=== PATIENT | female | born 1990 | race Caucasian/White ===

== ENCOUNTER 2017-05-20 23:45 | Emergency (ER) | payer SELFPAY ==
[~2017-05-20] VITALS: Ht 165.1 cm; Wt 65.5 kg
[2017-05-20 23:47] VITALS: Ht 165.1 cm; Wt 65.5 kg
[2017-05-21] MEDS ORDERED: morphine 4 MG/ML VIAL IV STA (00:09)
[2017-05-21] MEDS ORDERED: SOD CHLORIDE 0.9% 1,000 ML IV STA (00:09)
[2017-05-21] MEDS ORDERED: ONDANSETRON 4 MG INJ IV STA (00:09)
[2017-05-21 00:51] LABS: BASOPHILS % 0.1 % (0.0-2.0); EOSINOPHILS # 0.1 10^3/ul (0.0-0.5); EOSINOPHILS % 0.4 % (0.0-7.0); HEMATOCRIT 35.3 % (37.0-47.0); HEMOGLOBIN 11.4 g/dl (12.0-16.0); LYMPHOCYTES # 1.7 10^3/ul (0.8-2.9); LYMPHOCYTES % 12.8 % (15.0-51.0); MEAN CORPUSCULAR HEMOGLOBIN 25.9 pg (29.0-33.0); MEAN CORPUSCULAR HGB CONC 32.3 g/dl (32.0-37.0); MEAN CORPUSCULAR VOLUME 80.2 fl (82.0-101.0); MEAN PLATELET VOLUME 9.6 fl (7.4-10.4); MONOCYTE # 0.8 10^3/ul (0.3-0.9); MONOCYTES % 5.7 % (0.0-11.0); NEUTROPHIL # 10.8 10^3/ul (1.6-7.5); NEUTROPHILS % 80.4 % (39.0-77.0); PLATELET COUNT 408 10^3/UL (140-415); RED CELL DISTRIBUTION WIDTH 14.6 % (11.5-14.5); WHITE BLOOD COUNT 13.4 10^3/ul (4.8-10.8)
[2017-05-21 00:57] LABS: ADD UMIC YES; UR ASCORBIC ACID NEGATIVE (NEGATIVE); UR BILIRUBIN (Dip) NEGATIVE (NEGATIVE); UR BLOOD (Dip) 2+ mg/dL (NEGATIVE); UR CLARITY SLIGHTLY CLOUDY (CLEAR); UR COLOR YELLOW (YELLOW); UR GLUCOSE (Dip) NEGATIVE (NEGATIVE); UR KETONES (Dip) NEGATIVE (NEGATIVE); UR LEUKOCYTE ESTERASE (Dip) TRACE Leu/ul (NEGATIVE); UR MUCUS FEW /HPF (NONE SEEN); UR NITRITE (Dip) NEGATIVE (NEGATIVE); UR RBC 1 /HPF (0-5); UR SPECIFIC GRAVITY (Dip) 1.021 (1.003-1.030); UR SQUAMOUS EPITHELIAL CELL FEW /HPF (FEW); UR TOTAL PROTEIN (Dip) NEGATIVE (NEGATIVE); UR UROBILINOGEN (Dip) NEGATIVE (NEGATIVE)
[2017-05-21 01:23] LABS: ALBUMIN 4.7 g/dl (3.3-4.9); ALBUMIN/GLOBULIN RATIO 1.2; BILIRUBIN,INDIRECT 0.1 mg/dl (0-1.1); BILIRUBIN,TOTAL 0.1 mg/dl (0.2-1.3); CREATININE 0.83 mg/dl (0.44-1.00); POTASSIUM 3.6 mmol/L (3.5-5.1); TOTAL PROTEIN 8.6 g/dl (6.1-8.1)
--- NOTE | 2017-05-21 02:13 | RADRPT ---
PROCEDURE: Abdominal ultrasound, limited. CLINICAL INDICATION: Abdominal pain. TECHNIQUE: Multiple real-time images were acquired of the patient's right upper abdomen utilizing a high resolution transducer. COMPARISON: None FINDINGS: The liver demonstrates normal echogenicity and size measuring 16.0 cm. There is no focal mass or in trahepatic biliary ductal dilatation. The portal vein is patent. The gallbladder is not distended. Multiple echogenic gallstones are identified. There is a negative sonographic Molina's sign. The re is no pericholecystic fluid or gallbladder wall thickening. The common bile duct measures 4.9 mm in maximal dimension. The pancreas is obscured by overlying bowel gas. No free fluid is identifie d. The right kidney is normal size and echogenicity measuring 8.9 cm. There is no focal renal mass or echogenic calculus identified. There is no obstructive uropathy. IMPRESSION: Cholelithiasis without ultrasound evidence of cholecystitis. Pancreas obscured by overlying bowel gas. .Patrick Bermudez MD, Date Time Electronically viewed and signed by .Patrick Bermudez MD, MD on 05/21/2017 02:13 .T/
[2017-05-21] MEDS ORDERED: HYDR-906 PO (02:36)
[2017-05-21] MEDS ORDERED: IBUP-1542 PO (02:36)
[2017-05-21] MEDS ORDERED: ONDA4TAB14 PO (02:41)
--- NOTE | 2017-05-21 02:41 | ERD ---
ER Documentation Chief Complaint Date/Time DATE: 05/21/17 TIME: 02:39 Chief Complaint epigastric pain x 1 hour HPI Patient is a 26-year-old female who presents with epigastric pain that began about an hour ago. She states at times the pain radiates to the right side to her back. She admits to nausea and vomiting. Denies fever. Denies diarrhea. Last menstrual period is currently. Denies any dysuria hematuria or increased urinary frequency. Pain is 10 out of 10 throbbing and worse after eating. ROS All systems reviewed and are negative except as per history of present illness. Medications Home Meds Active Scripts Hydrocodone/Acetaminophen (Gooding 5-325 Tablet) 1 Each Tablet, 1 TAB PO Q6H Y for PAIN, #20 TAB Prov:ALYSE VALENZUELA PA-C 05/21/17 Ibuprofen* (Ibuprofen*) 600 Mg Tablet, 600 MG PO Q6H Y for PAIN, #30 TAB Prov:ALYSE VALENZUELA PA-C 05/21/17 Allergies Allergies: Coded Allergies: No Known Drug Allergies (Verified Allergy, Unknown, 05/20/17) PMhx/Soc Medical and Surgical Hx: pt denies Medical Hx, pt denies Surgical Hx History of Surgery: No (DENIES MEDICAL AND SURGICAL HX.) Hx Alcohol Use: No Hx Substance Use: No Hx Tobacco Use: No Smoking Status: Never smoker FmHx Family History: No diabetes Physical Exam Vitals Vital Signs Date Time Temp Pulse Resp B/P Pulse Ox O2 Delivery O2 Flow Rate FiO2 05/20/17 23:47 98.4 67 20 112/73 100 Physical Exam INITIAL VITAL SIGNS: Reviewed by me GENERAL: Awake, alert and oriented x 4, mild distress, nontoxic, speaking in full sentences. HEAD: Atraumatic EYES: EOMI. PERRL. ENT: Moist mucous membranes. Normal external ears, nose and mouth. Oropharynx clear NECK: Supple. No masses. Full range of motion. No meningismus. No midline tenderness. RESPIRATORY: Clear to auscultation bilaterally. Symmetric chest wall rise. No wheezing or rales. No accessory muscle use. CV: Regular rate and rhythm. No murmurs, rubs, or gallops. Equal pulses x 4. ABDOMEN: Soft, Nontender. Positive [place]. Negative McBurneys point tenderness. No CVA tenderness bilaterally. No guarding. No rebound. EXTREMITIES: No clubbing or cyanosis. No edema. BACK: No midline tenderness to palpation. No step-offs. Result Diagram: 05/21/172905/21/17 0030 Results 24 hrs Laboratory Tests Test 05/21/17 00:30 White Blood Count 13.410^3/ul Red Blood Count 4.4010^6/ul Hemoglobin 11.4g/dl Hematocrit 35.3% Mean Corpuscular Volume 80.2fl Mean Corpuscular Hemoglobin 25.9pg Mean Corpuscular Hemoglobin Concent 32.3g/dl Red Cell Distribution Width 14.6% Platelet Count 55538^3/UL Mean Platelet Volume 9.6fl Neutrophils % 80.4% Lymphocytes % 12.8% Monocytes % 5.7% Eosinophils % 0.4% Basophils % 0.1% Nucleated Red Blood Cells % 0.0/100WBC Neutrophils # 10.810^3/ul Lymphocytes # 1.710^3/ul Monocytes # 0.810^3/ul Eosinophils # 0.110^3/ul Basophils # 0.010^3/ul Nucleated Red Blood Cells # 0.010^3/ul Urine Color YELLOW Urine Clarity SLIGHTLY CLOUDY Urine pH 5.0 Urine Specific [place] 1.021 Urine Ketones NEGATIVEmg/dL Urine Nitrite NEGATIVEmg/dL Urine Bilirubin NEGATIVEmg/dL Urine Urobilinogen NEGATIVEmg/dL Urine Leukocyte Esterase TRACELeu/ul Urine Microscopic RBC 1/HPF Urine Microscopic WBC 7/HPF Urine Squamous Epithelial Cells FEW/HPF Urine Mucus FEW/HPF Urine Hemoglobin 2+mg/dL Urine Glucose NEGATIVEmg/dL Urine Total Protein NEGATIVEmg/dl Sodium Level 148mmol/L Potassium Level 3.6mmol/L Chloride Level 107mmol/L Carbon Dioxide Level 25mmol/L Anion Gap 20 Blood Urea Nitrogen 12mg/dl Creatinine 0.83mg/dl Glucose Level 91mg/dl Calcium Level 9.0mg/dl Total Bilirubin 0.1mg/dl Direct Bilirubin 0.00mg/dl Indirect Bilirubin 0.1mg/dl Aspartate Amino Transf (AST/SGOT) 28IU/L Alanine Aminotransferase (ALT/SGPT) 27IU/L Alkaline Phosphatase 88IU/L Total Protein 8.6g/dl Albumin 4.7g/dl Globulin 3.90g/dl Albumin/Globulin Ratio 1.20 Lipase 122U/L Current Medications Medications (Trade) Dose Ordered Sig/Armani Route PRN Reason Start Time Stop Time Status Last Admin Dose Admin Sodium Chloride (NS) 1,000 ml @ 1,000 mls/hr Q1H STAT IV 05/21/17 00:09 05/21/17 01:08 DC 05/21/17 00:27 Morphine Sulfate (morphine) 4 mg ONCE STAT IV 05/21/17 00:09 05/21/17 00:11 DC 05/21/17 00:27 Ondansetron HCl (Zofran Inj) 4 mg ONCE STAT IV 05/21/17 00:09 05/21/17 00:11 DC 05/21/17 00:27 Procedures/MDM Patient presents with abdominal pain. Patients is alert, oriented, well appearing, and in no distress with normal vital signs. There is no fever, tachycardia, or tachypnea. The differential diagnosis includes but is not limited to appendicitis, cholelithiasis, cholecystitis, pancreatitis, hepatitis , gastritis, peptic ulcer disease, bowel obstruction, diverticulitis, renal disease including stones, AAA, pyelonephritis, and others. Her labs and imaging studies are consistent with cholelithiasis. Patient had good relief of her symptoms with IV medications for pain and nausea. She was given copies of all of her labs and ultrasound reports she can follow with primary care. She was discharged with prescription for ibuprofen and Gooding. Patient counseled regarding my diagnostic impression and care plan. Prior to discharge all questions answered. Pt agrees with treatment plan and understands strict return precautions. Pt is instructed to follow up with primary care provider within 24- 48 hours. Precautionary instructions provided including instructions to return to the ER if not improving or for any worsening or changing symptoms or concerns. Departure Diagnosis: Primary Impression: Biliary colic Condition: Stable Patient Instructions: Biliary Colic With Gallstone (Confirmed) Additional Instructions: Llame al doctor MAANA y dorcas devika WILLIAM PARA DENTRO DE 1-2 DUMONT.Dgale a la secretaria que nosotros le instruimos hacer esta william.Avise o llame si flores condicin se empeora antes de la william. Regresa aqui si peor o no mejor. ALYSE VALENZUELA PA-C May 21, 2017 02:41
[2017-05-21 02:57] VITALS: BP 110/73; PULSE 71; RESP 20
== END 2017-05-21 03:02 | disposition home or self-care (01) ==
LOC: FTE 23:45
DX: K80.50 Calculus of bile duct without cholangitis or cholecystitis without obstruction (principal)
CPT/HCPCS: 36415; 76705; 80053; 81001; 83690; 85025; 96361; 96374; 96375; 99285; J2270; J2405; J7030